=== PATIENT | female | born 1990 | race Caucasian/White ===

== ENCOUNTER 2019-11-13 08:39 | Outpatient (CLI) | payer OTHER, BC, SELFPAY ==
[2019-11-13 09:54] LABS: Hematocrit 38.9 % (37.0-47.0); Hemoglobin 13.8 g/dL (12.0-15.0); Mean Corpuscular HGB Conc 35.5 g/dl (32-36); Mean Corpuscular Volume 90.3 fl (80-100); Mean Platelet Volume 9.7 fl (7.4-10.4); Platelet Count Result 299 k/mm3 (150-375); Red Blood Count 4.31 M/mm3 (4.2-5.4); White Blood Count 13.3 K/mm3 (4.5-10.0)
[2019-11-13 10:46] LABS: HIV 1/2 Ab P24 Ag Result Negative (Negative)
[2019-11-13 11:10] LABS: Hepatitis B Surface Antigen Negative (Negative); Rubella IgG Antibody 50.7 IU/ML
[2019-11-14 09:47] LABS: Rapid Plasma Reagin Non-Reactive (NonReactive)
[2019-11-15 10:31] LABS: CMV IgG Antibody <0.60 U/mL (<0.60)
== END 2019-11-13 08:40 | disposition home or self-care (01) ==
PROVIDERS: Visit Provider Obstetrics & Gynecology
DX: N92.5 Other specified irregular menstruation (principal)
CPT/HCPCS: 36415; 81329; 84702; 85027; 86592; 86644; 86703; 86747; 86762; 86787; 86850; 86900; 86901; 87086; 87088; 87340; G0432

== ENCOUNTER 2020-04-05 07:49 | Outpatient (CLI) | payer OTHER, BC, SELFPAY ==
[2020-04-05 09:13] LABS: Hematocrit 37.2 % (35.0-49.0); Hemoglobin 12.9 g/dL (12.0-15.0)
[2020-04-05 10:30] LABS: Glucose 1 Hour PP 50gm Dose 131 mg/dL (70-130)
[2020-04-05 10:42] LABS: HIV 1 P24 AG Negative (Negative); HIV 1/2 AB Negative (Negative)
== END 2020-04-05 07:50 | disposition home or self-care (01) ==
PROVIDERS: PCP Obstetrics & Gynecology; Visit Provider Obstetrics & Gynecology
DX: Z34.02 Encounter for supervision of normal first pregnancy, second trimester (principal)
CPT/HCPCS: 36415; 82947; 85014; 85018; 86703

== ENCOUNTER 2020-06-25 11:26 | Outpatient (CLI) | payer OTHER, BC, SELFPAY ==
[2020-06-25 11:38] LABS: Hematocrit 38.7 % (35.0-49.0); Mean Corpuscular HGB Conc 33.6 g/dL (32.0-36.0); Mean Corpuscular Hemoglobin 33.3 pg (27.0-31.0); Mean Corpuscular Volume 99.2 fL (78.0-102.0); Mean Platelet Volume 11.2 fl (9.2-11.8); Platelet Count Result 206 K/mm3 (150-420); Red Cell Distribution Width 13.1 % (11.6-14.4); White Blood Count 11.4 K/mm3 (4.8-10.8)
[2020-06-27 19:44] LABS: RPR Screen Non-Reactive (Non-Reactive)
== END 2020-06-25 11:27 | disposition home or self-care (01) ==
PROVIDERS: Visit Provider Obstetrics & Gynecology
DX: Z01.818 Encounter for other preprocedural examination (principal)
CPT/HCPCS: 36415; 85027; 86592; 86850; 86900; 86901

== ENCOUNTER 2020-06-26 05:30 | Inpatient (IN) | payer OTHER, BC, SELFPAY ==
[2020-06-26] VITALS (52 sets, daily range): BP systolic 101–141; BP diastolic 53–114; PULSE 61–108; RESP 16–20; TEMP 36.1–36.6; O2SAT 97–100; BMI 29.7
[2020-06-26] MEDS: LACTATED RINGERS 1,000 ML 125 ML IV CONT (05:54)
--- NOTE | 2020-06-26 06:18 | LDADM ---
This patient, Zayda Donahue, was admitted to Labor/Delivery/Recovery 120 on 06/26/20 at 05:30. Plans for repeat section, pain management and were discussed with patient. Patient/family oriented to hospital policies and general routines including ID bracelet, bed and alarms, visiting hours, pain management, procedures, bathroom and other care routines, personal items, smoking policy, room service/diet and guest tray routines, infant security routines, and visiting hours. Patient/Family are encouraged to report perceived risks to care and to ask questions if they do not understand what they are told or what they should do. See OBIX for further documentation.
--- NOTE | 2020-06-26 07:01 | WPDANESEPPF ---
Anes - Initial Pre Proc Eval Procedure: Operation Date: 06/26/20 07:30 Proposed Procedures p Repeat Section - Piyush Ellis MD Date/Time: 06/26/20 07:01 Surgeon: Piyush Ellis MD Pre Op Diagnosis: Repeat C/S Patient Data Age: 29 Gender: F Height: 5 ft 5 in Weight: 81 kg Last Vital Signs Temp 36.6 C 06/26/20 05:59 Pulse 83 06/26/20 07:00 Resp 20 06/26/20 05:59 BP 130/85 06/26/20 07:00 Allergies Allergy/AdvReac Type Severity Reaction Status Date / Time No Known Allergies Allergy Unverified 05/30/18 15:46 Home Medications Medication Instructions Recorded Confirmed Type PNV cmb#95-ferrous fumarate-FA 1 tablet PO DAILY 06/01/20 06/26/20 History [] aspirin 81 mg PO DAILY 06/01/20 06/26/20 History folic acid 5 mg PO DAILY 06/26/20 06/26/20 History Patient hx anesthesia problems: post op nausea/vomiting Family hx anesthesia problems: none PMFSH Family History Family History Grandparent Family history of malignant melanoma Social History Social History Smoking status: Never smoker Alcohol intake: never Substance use: never Gender identity (if verbalized by the patient): Female Spiritual care concerns: No Anes - Eval Final PreProcedure Day of Procedure 06/26/20 07:01 Patient weight: overweight Heart: regular rate and rhythm Lungs: clear to auscultation Airway: Mallampati scale class II Neurological: alert and oriented Last oral intake: >/= 8 hours ASA classification: II Emergent: no Anesthetic plan: proceed Anesthesia type and monitoring: regional spinal and standard monitoring Informed Consent: The patient's anesthetic plan and its attendant risks and benefits were discussed with the patient/family/POA. Questions were solicited and answers provided to the satisfaction of the patient/family/POA.
--- NOTE | 2020-06-26 07:14 | PM.IMHP ---
H&P: HPI History of Present Illness Date/Time: 06/26/20 07:14 Chief complaint: Repeat C/S Narrative: Zayda Donahue is a 29 year old female 2 para 1001 presents for repeat delivery at 39 weeks. care has been uncomplicated and records are on the chart. We had discussed tubal ligation and patient declines at this. Review of Systems Review of Systems: All systems reviewed & are unremarkable except as noted in HPI and below PMFSH Family History Family History Grandparent Family history of malignant melanoma Social History Social History Smoking status: Never smoker Alcohol intake: never Substance use: never Gender identity (if verbalized by the patient): Female Spiritual care concerns: No Meds Home Medications and Allergies Home Medications Medication Instructions Recorded Confirmed Type PNV cmb#95-ferrous fumarate-FA 1 tablet PO DAILY 06/01/20 06/26/20 History [] aspirin 81 mg PO DAILY 06/01/20 06/26/20 History folic acid 5 mg PO DAILY 06/26/20 06/26/20 History Allergies Allergy/AdvReac Type Severity Reaction Status Date / Time No Known Allergies Allergy Unverified 05/30/18 15:46 Vital Signs Vital Signs - 24 hr 06/26/20 05:58 06/26/20 05:59 06/26/20 06:00 Temperature 36.6 C Pulse Rate 69 81 Respiratory Rate 20 Blood Pressure 141/114 H 127/81 06/26/20 06:15 06/26/20 06:30 06/26/20 06:45 Temperature Pulse Rate 87 72 75 Respiratory Rate Blood Pressure 119/85 127/84 122/84 06/26/20 07:00 Temperature Pulse Rate 83 Respiratory Rate Blood Pressure 130/85 Exam Const: General: no acute distress Resp: Auscultation: clear to auscultation bilaterally Cardio: Rate: regular rate Rhythm: regular rhythm GI: GI Palp: Yes Soft to palpation Other: Fundal height 40cm heart tones 140 Assessment and Plan Assessment and plan (1) 39 weeks gestation of : Code(s): Z3A.39 - 39 weeks gestation of Status: Acute (2) Previous delivery affecting : Code(s): O34.219 - Maternal care for unspecified type scar from previous delivery Status: Acute Additional Plan proceed with repeat low transverse section.
--- NOTE | 2020-06-26 07:16 | WPDHPUPDATE1 ---
History and Physical Update Update Date/Time: 06/26/20 07:16 History and Physical has been reviewed, including an updated exam of the patient. There are NO changes in the patient's condition. Risks, benefits, and alternatives have been discussed and questions answered. Patient agrees to proceed with procedure.
[2020-06-26] MEDS: ceFAZolin 2 GM/D5W 50 ML 2 GM/50 ML BAG IVPB (07:20)
--- NOTE | 2020-06-26 08:13 | P.PCNOB_ITS ---
OB - Delivery Note Procedure Procedure: Procedures Operation Date: 06/26/20 07:30 <No data on this case meets the specified criteria> Route of delivery: Specimen: No Estimated blood loss (mL): 700 Anesthesia type: Epidural Disposition: floor Narrative: Patient prepped and draped in usual manner for this procedure. Pfannenstiel incision was made carried down to the fascia which was then extended bilaterally the length of the skin incision. Superiorly and inferiorly dissected away from the rectus muscles which were then bluntly dissected and the peritoneum was entered without difficulty. Bladder flap was developed uterus scored in lower incision made with clear fluid noted. Vertex was delivered section naso oral pharynx in the rest phase liver without difficulty. Cord was clamped and cut baby was passed off the operative field and the placenta was manually removed. Uterus was exteriorized and closed using 0 Monocryl running interlocking manner with good approximation hemostasis noted. Uterus was turned to the abdomen it is uterine incision was clean and abdomen was inspected with no further bleeding. All subfascial tissue was noted be hemostatic though there was a small area of oozing underneath the left eye rectus muscle which Adriano was placed and did render hemostatic. After the fascia was approximated 0 Vicryl running manner subcutaneous tissue was approximated 0 plain and jesús were used to approximate skin edges. Patient tolerated procedure well sent to recovery room in stable condition. [place] Baby Weeks of gestation at delivery: 39 gender: Female Weight (pounds): 8 Weight (ounces): 15 score one minute: 9 score five minutes: 9
--- NOTE | 2020-06-26 10:50 | PC.NURSE ---
Patient transferred to post room #290 per stretcher. Support person present. Oriented to unit, room, information board, rooming in, admission packet and security measures. Patient verbalizes understanding.
[2020-06-26] MEDS: SIMETHICONE 80 MG TAB.CHEW PO ×2 (13:17→20:49)
[2020-06-26] MEDS: ACETAMINOPHEN 325 MG TABLET 650 MG PO (13:17)
[2020-06-26] MEDS: ONDANSETRON INJ 4 MG/2 ML VIAL IV PUSH (13:19)
[2020-06-26] MEDS: KCL 20 MEQ/D5/0.45% SOD CHL 1,000 ML 125 ML IV CONT (15:21)
[2020-06-26] MEDS: IBUPROFEN 600 MG TABLET (20:49)
[2020-06-27 01:00] VITALS: BP 103/53; PULSE 77; RESP 18; TEMP 36.6; O2SAT 100
[2020-06-27 05:00] VITALS: BP 115/57; PULSE 92; RESP 16; TEMP 37.4; O2SAT 100
[2020-06-27] MEDS: IBUPROFEN 600 MG TABLET PO ×2 (05:16→11:08)
[2020-06-27 05:30] LABS: Hematocrit 30.2 % (37.0-47.0); Hemoglobin 10.3 g/dL (12.0-15.0)
[2020-06-27 07:35] VITALS: BP 123/71; PULSE 85; RESP 16; TEMP 36.4; O2SAT 99
[2020-06-27] MEDS: MULTIVIT/MIN/PREN/FOL AC/IRON TABLET 1 TAB PO (08:43)
[2020-06-27] MEDS: DOCUSATE SODIUM 100 MG CAPSULE PO (08:43)
[2020-06-27] MEDS: SIMETHICONE 80 MG TAB.CHEW PO (08:43)
--- NOTE | 2020-06-27 09:00 | PC.NURSE ---
Patient received instruction on viewing the discharge video Mother & Baby Care, The First Two Weeks online. Patient was given the opportunity and encouraged to ask questions. Patient verbalized understanding of information shared and has been given the mother/baby guide for home reference.
--- NOTE | 2020-06-27 09:25 | PM.OBDSVD ---
DS: Admitting Diagnosis Admitting Diagnosis Admitting Diagnosis: Repeat C/S OB - DS: Summary OB Procedures : None OB Procedures Intrapartum: OB Procedures: : None Peripartum Data Procedures: Procedures Operation Date: 06/26/20 07:30 Actual Procedures Side Surgeon p Repeat Section Piyush Ellis MD Time Spent with Patient Time attestation: Total time spent providing and/or coordinating discharge services: DS: Data Data Completed and Pending Labs on day of discharge: Labs from last 24 hours 06/27/20 06/27/20 05:06 05:06 Hgb 10.3 L D Hct 30.2 L Blood Type A Positive Antibody Screen Negative Discharge Plan Discharge Consulting providers: [facility] Discharging Clinician: Piyush Ellis Patient Disposition: Home, Self-Care Activity: as tolerated Diet: as tolerated Wound Care Instructions: incision open to air Discharge Instructions: office wednesday for staple removal Patient Instructions: Antibiotic Form Stand Alone Forms: General Discharge Information Follow-up/Referrals: Piyush Ellis MD [Physician] - 3 Weeks Discharge Medications: Continued PNV cmb#95-ferrous fumarate-FA [] 28 mg iron- 800 mcg Tablet 1 tablet PO DAILY RF: 0 Discontinued aspirin 81 mg Tablet,Chewable 81 mg PO DAILY RF: 0 folic acid 1 mg Tablet 5 mg PO DAILY RF: 0 Date of admission: 06/26/20 05:30 Primary Care Provider: PHYSICIAN,HISTORIAN DRAMATIC ARTS Admitting Provider: Piyush Ellis Attending physician on admission: Piyush Ellis Condition: Stable
--- NOTE | 2020-06-27 10:58 | WPDANLDPN2 ---
Anes-Prog Note L&D Date/Time: 06/27/20 10:58 Comfortable throughout: section Neuraxial method: spinal Epidural/Spinal procedure site: clean & non-tender Neuro status: Neuro function grossly intact. Cardiovascular status: normal Respiratory status: normal Airway patency: baseline Mental status: baseline Post-Op hydration status: normal Vital Signs: Last Vital Signs Temp 36.4 C L 06/27/20 07:35 Pulse 85 06/27/20 07:35 Resp 16 06/27/20 07:35 BP 123/71 06/27/20 07:35 Pulse Ox 99 06/27/20 07:35 Pain score (VAS): 0 Post-procedural complaints: none Patient feedback: Patient satisfied with anesthetic care.
--- NOTE | 2020-06-27 10:58 | WPDANLDNPN2 ---
Anes-Prog Note L&D-Neuraxial Date/Time: 06/27/20 10:58 Neuraxial medications: intrathecal PF morphine Opiod-related complaints: none Patient feedback: Patient satisfied with post-operative pain management.
[2020-06-28 10:59] VITALS: BP 119/82; PULSE 80; RESP 14; TEMP 36.4; O2SAT 100
== END 2020-06-27 12:26 | disposition home or self-care (01) | DRG 788 ==
LOC: ANHLDR 05:35 → ANHOB2 10:56
PROVIDERS: Admitting Provider Obstetrics & Gynecology; Visit Provider Obstetrics & Gynecology
PROC: 10D00Z1 Extraction of Products of Conception, Low, Open Approach (ICD-10-PCS; CPT 59514; principal; 2020-06-26 07:30)
DX: O34.211 Maternal care for low transverse scar from previous cesarean delivery (principal); Z37.0 Single live birth; Z3A.39 39 weeks gestation of pregnancy; O36.8330 Maternal care for abnormalities of the fetal heart rate or rhythm, third trimester, not applicable or unspecified; O69.81X0 Labor and delivery complicated by cord around neck, without compression, not applicable or unspecified
CPT/HCPCS: 36415; 85014; 85018; 86850; 86900; 86901; A9270; J0131; J0690; J2274; J2370; J2405; J2590; J3480; J7120

== ENCOUNTER 2020-09-25 08:32 | Outpatient (CLI) | payer OTHER, BC, SELFPAY ==
--- NOTE | ~2020-09-25 | US_ITS ---
US breast LT limited 09/25/2020 09:03 Indication: Palpable left breast lump. Patient breast feeding. Procedure: High-resolution targeted left breast ultrasound Comparison: No prior studies for comparison. Findings: At 2:00, 5 cm from the nipple, there is a complex largely cystic mass with slightly irregul ar margins and posterior acoustic enhancement measuring 8 x 7 x 5 mm. In the upper outer quadrant of the left breast near the chest wall is a complicated cystic mass with internal echoes and possible th in septations measuring 1.3 x 1.2 x 0.8 cm. Impression: 1: Complicated cysts of the left breast at 2:00, 5 cm from the nipple and in the upper outer quadrant near the pectoralis muscle. Given the patient's age and lactating status, these are likely benign, m ost likely complicated cyst or a lactating adenomas. Short-term follow-up is recommended in 3 months. BI-RADS CATEGORY 3-PROBABLY BENIGN FINDING RECOMMENDATION: 3 month follow-up left breast ultrasound recommended. Reviewed, dictated and finalized at location A. LSCOPE OPERATOR Impression: 1: Complicated cysts of the left breast at 2:00, 5 cm from the nipple and in th e upper outer quadrant near the pectoralis muscle. Given the patient's age and lactating status, these are likely benign, most likely complicated cyst or a la ctating adenomas. Short-term follow-up is recommended in 3 months. BI-RADS CATEGORY 3-PROBABLY BENIGN FINDING RECOMMENDATION: 3 month follow-up left breast ultrasound recommended.
== END 2020-09-25 08:33 | disposition home or self-care (01) ==
LOC: CHSIMG 08:34
PROVIDERS: PCP Obstetrics & Gynecology; Visit Provider Obstetrics & Gynecology
DX: N63.20 Unspecified lump in the left breast, unspecified quadrant (principal)
CPT/HCPCS: 76642

== ENCOUNTER 2020-12-17 08:32 | Outpatient (CLI) | payer OTHER, BC, SELFPAY ==
--- NOTE | ~2020-12-17 | US_ITS ---
EXAMINATION: US breast LT complete HISTORY: Follow-up for probably benign left breast mass TECHNIQUE: Limited ultrasound is performed in the upper outer quadrant of the left breast. FINDINGS: The previously described cystic masses of the left breast are no longer identified. There a re benign-appearing lymph nodes in the upper outer quadrant of the breast. IMPRESSION: Interval resolution of the previously described cystic left breast masses. Further evaluation at this time should be based on clinical assessment. Continued follow-up physical examination is recommended . BI-RADS Category 1: Negative Reviewed, dictated and finalized at location A. IMPRESSION: Interval resolution of the previously described cystic left breast masses. Furt her evaluation at this time should be based on clinical assessment. Continued f ollow-up physical examination is recommended. BI-RADS Category 1: Negative
== END 2020-12-17 08:33 | disposition home or self-care (01) ==
LOC: CHSIMG 08:34
PROVIDERS: PCP Obstetrics & Gynecology; Visit Provider Obstetrics & Gynecology
DX: N60.02 Solitary cyst of left breast (principal)
CPT/HCPCS: 76641

== ENCOUNTER 2025-03-12 10:35 | Outpatient (CLI) | payer BC, SELFPAY ==
[2025-03-12 10:55] LABS: Basophils Percent Auto 0.4 % (0.2-1.2); Eosinophils Absolute Auto 0.3 K/mm3 (0-0.3); Hematocrit 37.8 % (37.0-47.0); Hemoglobin 12.7 g/dL (12.0-15.0); Immature Granulocyte Absolute 0.03 K/mm3 (0.00-0.031); Immature Granulocyte Percent A 0.4 % (0-0.5); Lymphocytes Absolute Auto 2.19 K/mm3 (0.9-3.2); Lymphocytes Percent Auto 27.3 % (18.3-44.2); Mean Corpuscular HGB Conc 33.6 g/dl (32-36); Mean Corpuscular Hemoglobin 32.1 pg (26-34); Mean Corpuscular Volume 95.5 fl (80-100); Mean Platelet Volume 9.2 fl (7.4-10.4); Monocytes Absolute Auto 0.5 K/mm3 (0.1-0.6); Monocytes Percent Auto 6.2 % (2.6-8.5); Neutrophils Percent Auto 61.7 % (45.5-73.1); Platelet Count Result 230 k/mm3 (150-375); Red Blood Count 3.96 M/mm3 (4.2-5.4); Red Cell Distribution Width 12.9 % (11.5-14.5)
[2025-03-12 11:06] LABS: Alanine Aminotransferase 16 U/L (6-35); Albumin Level 4.4 g/dL (3.5-5.1); Alkaline Phosphatase 36 U/L (38-126); Anion Gap 7 mmol/L (4-12); Aspartate Amino Transferase 24 U/L (14-36); Bilirubin,Total 1.4 mg/dL (0.2-1.3); Blood Urea Nitrogen 12 mg/dL (7-17); Calcium 9.2 mg/dL (8.4-10.2); Carbon Dioxide 25 mmol/L (22-30); Chloride 106 mmol/L (98-107); Cholesterol 199 mg/dL (0-200); Estimated Glomerular Filt Rate > 60; Glucose 99 mg/dL (65-110); HDL Direct 53 mg/dL; Potassium 3.9 mmol/L (3.4-5.0); Sodium 138 mmol/L (137-145); Total Protein 7.5 g/dL (6.3-8.2); Triglycerides 114 mg/dL (<150)
[2025-03-12 11:16] LABS: LDL Cholesterol Direct 123 mg/dL
--- OUTSIDE RECORDS SUMMARY | 2025-03-12 11:33 | XMS_ITS | Clinical Summary ---
Author Organization [facility] Address [address] [place] [address] Care Team Providers Care Passenger Coach Driver Name Role Phone Kamari Srinivasan MD Primary Care Provider Source Comments [facility],non-owned Affiliates and Associated Physician Practices is amultiple site organization consisting of ambulatory clinics and hospital sitesin [place], [place], [place] and [place]. This disclosure is being madepursuant to the Care Everywhere program and may not contain all information available regarding this patient. Last updated 18.[facility] Allergies No known active allergies Medications * This document contains information received from the source organization and may not represent a complete record from that organization. * Be aware that medications may not be up to date on this document. Alwaysverify current medications with the patient. Vit-Fe Fumarate-FA ( VITAMIN) 28-0.8 MG tablet Take 1 tablet by mouth once daily Active loratadine (CLARITIN) 10 MG tablet Take 10 mg by mouth once daily Active Folic Acid 5 MG Acti ve Active Problems Patient Care Coordination No te Formatting of this note migh t be different from the original. 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 Encounter for supervision of high risk in second trimester, antepartum 06/25/2017 12/07/2017 Social History Tobacco Use Types Packs/Day Years Used Date Smoking Tobacco: Never Smokeless Tobacco: Never Alcohol Use Standard Drinks/Week Comments No 0 (1 standard drink = 0.6 oz pur e alcohol) Comments No Sex and Gender Information Value Date Recorded Sex Assigned at Not on file Legal Sex Female 10:34 AM CDT Gender Identity Not on file Sexual Orientation Not on file Last Filed Vital Signs Vital Sign Reading Time Taken Comments Blood Pressure 118/71 01/26/2018 12:32 PM CDT Pulse 66 01/26/2018 12:32 PM CDT Temperature 36.7 C (98.1 F) 02/09/2020 1:49 PM CDT Respiratory Rate - - Oxygen Saturation - - Inhaled Oxygen Concentration - - Weight 66.2 kg (146 lb) 01/26/2018 12:32 PM CDT Height 165.1 cm (5' 5) 01/26/2018 12:34 PM CDT Body Mass Index 24.3 01/26/2018 12:32 PM CDT Plan of Treatment Health Maintenance Due Date Last Done Comments HIV SCREENING 12/13/2003 HEPATITIS C SCREENING 12/08/2006 DTAP/TDAP/TD VACCINES (1 - Tdap) 12/13/2007 HEPATITIS B VACCINE (1 of 3 - 19+ 3-dose series) 12/13/2007 COVID-19 VACCINE ( - 2023-2 5 season) 2024 DEPRESSION SCREENING 09/27/2024 INFLUENZA VACCINE (Season Ended) 2025 06/10/20 18 ZOSTER VACCINE (1 of 2) 2038 HIB VACCINE Aged Out No longer eligi ble based on patient's age to complete this topic HPV VACCINE Aged Out No longer eligi ble based on patient's age to complete this topic MENINGOCOCCAL (Group B) VACC INE SHARED DECISION-MAKING Aged Out No longer eligibl e based on patient's age to complete this topic MENINGOCOCCAL GROUPS A/C/Y/W VACCINE Aged Out No longer eligible b ased on patient's age to complete this topic PNEUMOCOCCAL VACCINE Aged Out No long er eligible based on patient's age to complete this topic Insurance [facility] [place] [address] CARE Care Teams Passenger Coach Driver Relationship Specialty Start Date End Date Kamari Srinivasan MD [address] [address] [facility] - General 02/23/18
[2025-03-12 12:28] LABS: Hemoglobin A1C 4.8 % (<5.7)
[2025-03-15 09:08] LABS: NIL 0.04 IU/mL; Quantiferon TB Plus, 1T NEGATIVE (NEGATIVE); TB1-NIL 0.01 IU/mL; TB2-NIL 0.01 IU/mL
== END 2025-03-12 10:36 | disposition home or self-care (01) ==
LOC: ANHLAB 10:36
PROVIDERS: Visit Provider Obstetrics & Gynecology
DX: Z00.00 Encounter for general adult medical examination without abnormal findings (principal)
CPT/HCPCS: 36415; 80053; 80061; 83036; 84443; 85025; 86480